=== PATIENT | female | born 1975 | race Caucasian/White ===

== ENCOUNTER → 2016-10-30 | Outpatient (CLI) | payer BC ==
--- NOTE | 2016-10-30 15:35 | Diagnostic Imaging Report ---
Indication: Six-month followup evaluation for abnormalities seen on prior screening mammography Technique: Craniocaudal, mediolateral oblique, and cleavage views of the right breast. Focused ultrasound of the right breast Comparison: Diagnostic mammogram and ultrasound 04/29/2016, screening mammogram 02/11/2016 Findings: Mammogram demonstrates extremely dense breasts. No architectural distortion. Previously described right breast asymmetries seen on screening mammogram in the outer and inner right breast are not evident currently. Ultrasound demonstrates multiple cysts, including a 4 x 6 mm cyst at 11:00, per 8 mm cyst at 11:00 and a 6 mm cyst at 11 and 12:00. 11 12:00 cyst was evident previously. The other 2 cysts equivocally new. Area of prominent parenchyma are at the 9:00 position appears similar the prior study, does not appear masslike on real-time imaging by myself. No medial abnormality is demonstrated Impression: No new or enlarging solid mass demonstrated. No findings to correlate with asymmetries described on 02/11/2016 screening mammogram 3 small cysts Recommend further short interval followup mammography and ultrasound in 6 months. At that time, patient will be due for bilateral annual mammography as well BI-RADS category 3-probably benign
== END | disposition home or self-care (01) ==
LOC: MAMMO 13:12
DX: R92.8 Other abnormal and inconclusive findings on diagnostic imaging of breast (principal); N63 Unspecified lump in breast

== ENCOUNTER 2017-05-17 12:36 | Outpatient (CLI) | payer BC ==
--- NOTE | 2017-05-18 14:02 | Diagnostic Imaging Report ---
Indication: Short interval followup evaluation of previously reported right breast abnormalities requested Technique: Bilateral craniocaudal and mediolateral oblique views. Focused ultrasound of the right breast Comparison: 10/30/2016, 04/29/2016, 02/11/2016 Findings: Breast parenchyma is extremely dense. This reduces the sensitivity of mammography. No parenchymal asymmetry nor architectural distortion. No dominant masses nor suspicious clustered microcalcifications. The medial asymmetry described on the original craniocaudal view of January 2016 is not evident currently. The outer right breast asymmetry also described on mammogram is not currently visible. No new dominant masses. No suspicious clustered microcalcifications. No skin thickening nor nipple retraction. No axillary adenopathy. Ultrasound of the right breast demonstrates prominent fat lobule at the 9:00 position, which appears unchanged. Small cluster of cysts at the 11:00-12:00 position is unchanged. This measures 6 mm maximal diameter. 5 mm 11:00 cyst is unchanged. A 3 mm cyst is seen at the 9 to 10:00 position, also evident previously.. Impression: Negative mammographic findings, stable sonographic findings, as described above. Recommend additional six-month followup mammography and sonography for further evaluation BI-RADS category 3-probably benign
== END 2017-05-17 14:36 | disposition home or self-care (01) ==
LOC: MAMMO 12:36
DX: N63 Unspecified lump in breast (principal)
CPT/HCPCS: 76641; G0204; 77066